=== PATIENT | male | born 1975 | race Caucasian/White ===

== ENCOUNTER 2019-12-14 17:04 | Inpatient (IN) | payer MEDICAID ==
[~2019-12-14] VITALS: Ht 172.7 cm; Wt 74.8 kg
--- NOTE | 2019-12-14 17:04 | NUR ---
PT BIBA ALS TO ER BED 10
[2019-12-14 17:12] VITALS: BP 185/100
--- NOTE | 2019-12-14 17:28 | NUR ---
BIB [facility] PATIENT WAS RECEIVING DIALYSIS TREATMENT TODAY FOR 2.5 HOURS OUT OF A 3.5 HOUR SESSION AND NOTIFIED THE NURSE THAT THE HEADACHE/NAUSEA/ BLURRED VISION HE HAS BEEN EXPERIENCING FOR THREE DAYS WAS GETTING WORSE. THE RN AT DIALYSIS CALLED 911. PATIENT REPORTS HE HAS HAD A SEVERE HEADACHE WITH NAUSEA/ VOMITING FOR THREE DAYS ACCOMPANIED BY 10/10 ABD PAIN. BOWEL SOUNDS NORMOACTIVE IN ALL QUADRANTS. ABD IS FLAT. GCS 15, AAOX4. PERRLA, 3MM. ABLE TO FOLLOW COMMANDS. DENIES CHEST PAIN/SOB. ROM IN TACT IN UPPER/LOWER BILAT EXTREMITIES. PMH: RENAL FAILURE, DM NKA
[2019-12-14] MEDS ORDERED: HYDROmorphone PFS 2 MG/ML SYR IVP ONE ×2 (17:30→19:10)
[2019-12-14 17:54] LABS: BASOPHILS % (AUTO) 0.8 % (0.0-2.0); EOSINOPHILS # (AUTO) 0.1 K/uL (0-0.4); EOSINOPHILS % (AUTO) 0.8 % (0.0-4.0); HEMATOCRIT 32.1 % (36-52); HEMOGLOBIN 10.2 g/dL (12.0-18.0); LYMPHOCYTES # (AUTO) 1.2 K/uL (2.0-11.5); LYMPHOCYTES % (AUTO) 19.2 % (20.5-51.1); MEAN CORPUSCULAR HEMOGLOBIN 27 pg (27-31); MEAN CORPUSCULAR HGB CONC 32 g/dL (33-37); MEAN CORPUSCULAR VOLUME 84.5 fL (80-94); MONOCYTES # (AUTO) 0.5 K/uL (0.8-1.0); NEUTROPHILS # (AUTO) 4.4 K/uL (1.8-7.7); NEUTROPHILS % (AUTO) 71.2 % (42.2-75.2); PLATELET COUNT (AUTO) 273 K/uL (140-450); RED CELL DISTRIBUTION WIDTH 18.5 % (11.6-13.7); WHITE BLOOD COUNT (AUTO) 6.2 K/uL (4.8-10.8)
--- NOTE | 2019-12-14 18:00 | NUR ---
FLU SWAB TAKEN AT BEDSIDE
[2019-12-14] MEDS ORDERED: ONDANSETRON 4 MG/2 ML VIAL IVP ONE (18:25)
[2019-12-14 18:32] LABS: ANION GAP 15.7 (8-16); CARBON DIOXIDE 31.4 mmol/L (21-32); POTASSIUM 4.1 mmol/L (3.5-5.1)
[2019-12-14 18:37] LABS: CREATININE 5.8 mg/dL (0.7-1.3)
[2019-12-14 18:39] LABS: ALBUMIN 3.3 g/dL (3.4-5.0); TOTAL BILIRUBIN 0.8 mg/dL (0.0-1.0)
--- NOTE | 2019-12-14 19:18 | NUR ---
SBAR REPORT GIVEN TO AJ CHA
[2019-12-14] MEDS ORDERED: ASPIRIN 325 MG TAB PO ONE (19:35)
[2019-12-14] MEDS ORDERED: ONDANSETRON 4 MG/2 ML VIAL IM/IVP PRN (20:25)
[2019-12-14] MEDS ORDERED: ACETAMINOPHEN 325 MG TAB PO PRN (20:25)
[2019-12-14] MEDS ORDERED: DEXTROSE 50% 50 ML SYR IVP PRN (20:50)
[2019-12-14] MEDS ORDERED: NITROGLYCERIN 0.4 MG TAB SL PRN (20:50)
[2019-12-14] MEDS ORDERED: FURO-570 PO (21:00)
[2019-12-14] MEDS ORDERED: LABE100T9 PO (21:00)
[2019-12-14] MEDS ORDERED: VITA1TAB44 PO (21:00)
[2019-12-14] MEDS ORDERED: NIFE60TE5 PO (21:00)
[2019-12-14] MEDS ORDERED: PHO667 PO (21:00)
[2019-12-14] MEDS ORDERED: HYDR-733 PO (21:00)
[2019-12-14] MEDS ORDERED: hydrALAZINE 20 MG/ML VIAL IVP SCH (21:00)
[2019-12-14] MEDS ORDERED: ATOR40TA PO (21:00)
[2019-12-14] MEDS ORDERED: BER PO (21:00)
[2019-12-14] MEDS: BLOOD GLUCOSE MONITORING 1 DEV DEV FS SCH (21:00)
[2019-12-14] MEDS ORDERED: CARV6.25 PO (21:00)
[2019-12-14 21:01] LABS: PROTHROMBIN TIME 11.2 secs (10.8-13.4)
--- NOTE | 2019-12-14 21:17 | NUR ---
RECEIVED PATIENT FROM ER NURSE VIA [facility]. TELE PATIENT. PATIENT IS A/O X4, ABLE TO MAKE NEEDS KNOWN. PATIENT IS BLIND OU, AMBULATORY WITH CANE/ASSIST. RESPIRATIONS EVEN. ON O2 2L NC. SKIN WARM, DRY. HD NOTED TO LEFT UPPER ARM, THRILL/BRUIT NOTED. IV SITE TO RIGHT AC 20 G PATENT, INTACT. NO C/O PAIN. NO S/SX ACUTE DISTRESS AT THIS TIME. MRSA SCREEN COMPLETED. SAFETY PRECAUTIONS IN PLACE. PATIENT ORIENTED TO ROOM, CALL LIGHT, BATHROOM AND VISITING HOURS. CALL LIGHT WITHIN REACH. WILL CONTINUE TO MONITOR.
--- NOTE | 2019-12-14 21:17 | NUR ---
Patient will be admitted to care of DR. BOWSER Admited to TELE. Will go to room 104 A. Belongings list completed. Report to STARLA LEON .
[2019-12-14 21:22] LABS: LACTATE DEHYDROGENASE 172 U/L (85-227); MAGNESIUM 2.3 mg/dL (1.8-2.4); PHOSPHORUS 3.5 mg/dL (2.5-4.9)
[2019-12-14 21:32] LABS: LIPASE 165 U/L (73-393)
[2019-12-14] MEDS: NACL 0.9% 1,000 ML IV SCH (21:55)
[2019-12-14 22:21] LABS: IRON, SERUM 28 ug/dl (50-175); TOTAL IRON BINDING CAPACITY 186 ug/dl (250-450)
--- NOTE | 2019-12-14 22:34 | NUR ---
BLOOD PRESSURE 178/92, HR 80. PATIENT STATED HE ONLY HAS A MILD HEADACHE BUT THAT HE IS OK. WILL CONTINUE TO MONITOR.
[2019-12-14] MEDS: ATORVASTATIN 20 MG TAB PO SCH (23:04)
[2019-12-14] MEDS: VIT-B COMP/VIT-C/FOLIC ACID 1 TAB PO SCH (23:04)
[2019-12-14] MEDS: FUROSEMIDE 40 MG TAB PO SCH (23:05)
[2019-12-14] MEDS: CARVEDILOL 6.25 MG TAB PO SCH (23:05)
--- NOTE | 2019-12-14 23:41 | NUR ---
BLOOD PRESSURE 184/96 HR 79. MEDICATED WITH APRESOLINE PRN. WILL CONTINUE TO MONITOR. Addendum: 12/14/19 at 2343 by Anastasia Carr RN DOCUMENTATION TIME FOR 2133.
--- NOTE | 2019-12-14 23:44 | NUR ---
BLOOD PRESSURE TRENDING DOWN AND CURRENTLY AT 160/80, HR 74. PATIENT IS ASLEEP. NO C/O PAIN. CALL LIGHT WITHIN REACH. WILL CONTINUE TO MONITOR.
[2019-12-15] VITALS: BP 150/78
[2019-12-15] MEDS: HYDROcodone/APAP 5/325 MG 1 TAB TAB PO PRN (00:15)
--- NOTE | 2019-12-15 00:15 | NUR ---
PATIENT C/O ACHING HIP PAIN 05/04. MEDICATED ORDERED. WILL CONTINUE TO MONITOR.
--- NOTE | 2019-12-15 01:15 | NUR ---
PATIENT VERBALIZED RELIEF FROM HIP PAIN AT A TOLERABLE LEVEL. CALL LIGHT WITHIN REACH. WILL CONTINUE TO MONITOR.
[2019-12-15] MEDS: MORPHINE SULFATE 2 MG/ML SYR IVP PRN ×2 (01:49→06:05)
--- NOTE | 2019-12-15 01:49 | NUR ---
PATIENT C/O ACHING HIP PAIN 08/04. MEDICATED ORDERED. CALL LIGHT WITHIN REACH. WILL CONTINUE TO MONITOR.
[2019-12-15 02:27] LABS: BASOPHILS % (AUTO) 0.9 % (0.0-2.0); EOSINOPHILS # (AUTO) 0.1 K/uL (0-0.4); EOSINOPHILS % (AUTO) 0.9 % (0.0-4.0); HEMATOCRIT 30.3 % (36-52); HEMOGLOBIN 9.6 g/dL (12.0-18.0); LYMPHOCYTES # (AUTO) 1.3 K/uL (2.0-11.5); LYMPHOCYTES % (AUTO) 23.2 % (20.5-51.1); MEAN CORPUSCULAR HEMOGLOBIN 27 pg (27-31); MEAN CORPUSCULAR HGB CONC 32 g/dL (33-37); MEAN CORPUSCULAR VOLUME 85.3 fL (80-94); MONOCYTES # (AUTO) 0.6 K/uL (0.8-1.0); MONOCYTES % (AUTO) 10.5 % (1.7-9.3); NEUTROPHILS # (AUTO) 3.5 K/uL (1.8-7.7); NEUTROPHILS % (AUTO) 64.5 % (42.2-75.2); PLATELET COUNT (AUTO) 230 K/uL (140-450); RED BLOOD CELL COUNT(AUTO) 3.55 MIL/uL (4.20-6.10); RED CELL DISTRIBUTION WIDTH 18.3 % (11.6-13.7); WHITE BLOOD COUNT (AUTO) 5.5 K/uL (4.8-10.8)
--- NOTE | 2019-12-15 02:49 | NUR ---
PATIENT ASLEEP IN BED. CALL LIGHT WITHIN REACH. WILL CONTINUE TO MONITOR.
[2019-12-15 03:16] LABS: CARBON DIOXIDE 30.8 mmol/L (21-32); MAGNESIUM 2.3 mg/dL (1.8-2.4); PHOSPHORUS 5.1 mg/dL (2.5-4.9); POTASSIUM 4.8 mmol/L (3.5-5.1)
[2019-12-15 03:28] LABS: CHOL/HDL RATIO 2.1 (1-4.5)
[2019-12-15] MEDS ORDERED: APAP/BUTAL/CAFF 325/50/40 MG 1 TAB PO PRN (03:40)
[2019-12-15 04:00] VITALS: BP 123/71
[2019-12-15] MEDS ORDERED: HYDROmorphone 1 MG/ML AMP IVP SCH (04:00)
--- NOTE | 2019-12-15 04:06 | NUR ---
PATIENT C/O UNCONTROLLABLE HEADACHE. MD WITH NEW ORDER FOR DILAUDID. MEDICATED ORDERED. WILL CONTINUE TO MONITOR.
[2019-12-15 05:03] LABS: CREATININE 6.8 mg/dL (0.7-1.3)
--- NOTE | 2019-12-15 05:06 | NUR ---
PATIENT ASLEEP. NO C/O PAIN. CALL LIGHT WITHIN REACH. WILL CONTINUE TO MONITOR.
--- NOTE | 2019-12-15 05:06 | NUR ---
CRITICAL LAB CREATININE 6.8, MADE AWARE. PATIENT IS ASLEEP IN BED. NO S/SX ACUTE DISTRESS NOTED. CALL LIGHT WITHIN REACH. WILL CONTINUE TO MONITOR. Addendum: 12/15/19 at 0648 by Anastasia Carr RN REPORTED TO DR PANDYA.
--- NOTE | 2019-12-15 06:05 | NUR ---
PATIENT CONTINUES TO C/O OF HEADACHE 08/04. MEDICATED ORDERED. WILL CONTINUE TO MONITOR.
[2019-12-15] MEDS: BLOOD GLUCOSE MONITORING 1 DEV DEV FS SCH ×4 (06:19→21:00)
--- NOTE | 2019-12-15 07:08 | NUR ---
ENDORSED PATIENT TO AM SHIFT IN STABLE CONDITION FOR CONTINUITY OF CARE.
[2019-12-15] MEDS ORDERED: CYCLOBENZAPRINE 10 MG TAB PO PRN (07:15)
--- NOTE | 2019-12-15 07:27 | NUR ---
RECEIVED REPORT FROM NIGHT NURSE. PT IN STABLE CONDITION, AAOX4, DENIES PAIN, NO DISTRESS NOTED. PT LEGALLY BLIND. RESPIRATIONS EVEN AND UNLABORED ON O2 NC 2L. IV IN PLACE IN R AC 22G PATENT AND ASYMPTOMATIC INFUSING PER ORDER. UPPER LEFT ARM SHUNT IN PLACE FOR HD. SKIN INTACT. SAFETY MEASURES IN PLACE. CALL LIGHT WITHIN REACH. BED IN LOW POSITION. WILL CONTINUE TO MONITOR.
[2019-12-15 08:00] VITALS: BP 131/71
[2019-12-15] MEDS: FLUTICASONE NASAL 50 MCG/ACTUATION 16 GM BTL NS SCH (08:30)
[2019-12-15] MEDS: VITAMIN B COMPLEX W/C 1 TAB PO SCH (08:31)
[2019-12-15] MEDS: hydrALAZINE 25 MG TAB PO SCH ×3 (08:31→17:00)
[2019-12-15] MEDS: NIFEdipine 60 MG TABER PO SCH (08:32)
[2019-12-15] MEDS: LORATADINE 10 MG TAB PO SCH (08:32)
[2019-12-15] MEDS: FUROSEMIDE 40 MG TAB PO SCH ×2 (08:38→21:27)
[2019-12-15] MEDS: ASPIRIN 81 MG TAB.CHEW PO SCH (08:38)
[2019-12-15] MEDS: CARVEDILOL 6.25 MG TAB PO SCH ×2 (08:38→21:27)
--- NOTE | 2019-12-15 08:38 | NUR ---
PATIENT HAS BEEN SCREENED AND CATEGORIZED MODERATE NUTRITION RISK. PATIENT WILL BE SEEN WITHIN 3-5 DAYS OF ADMISSION. 12/17/19 12/19/[address]
[2019-12-15] MEDS: CALCIUM ACETATE 667 MG TAB PO SCH ×3 (08:39→17:00)
--- NOTE | 2019-12-15 09:24 | NUR ---
MEDICATIONS ADMINISTERED PER ORDER. PT TOLERATED WELL, NO DISTRESS NOTED. WILL CONTINUE TO MONITOR.
--- NOTE | 2019-12-15 11:12 | NUR ---
BLOOD SUGAR CHECKED AT THIS TIME. NO COVERAGE NEEDED. SAFETY MEASURES IN PLACE. WILL CONTINUE TO MONITOR.
[2019-12-15 12:00] VITALS: BP 161/85
[2019-12-15] MEDS: SUMAtriptan 25 MG TAB PO PRN ×2 (12:00→18:40)
--- NOTE | 2019-12-15 12:04 | NUR ---
MEDICATIONS ADMINISTERED PER ORDER. PT TOLERATED WELL, NO DISTRESS NOTED. WILL CONTINUE TO MONITOR.
--- NOTE | 2019-12-15 15:02 | NUR ---
PT REQUESTS TO BE CHANGED TO ANOTHER ROOM DUE TO FAMILY MEMBERS PRESENT WITH ROOMMATE. TRANSFERED TO ROOM 111B. PT HAPPY WITH CHANGE
--- NOTE | 2019-12-15 15:16 | NUR ---
PT STARTS HEMODIALYSIS. WILL CONTINUE TO MONITOR.
[2019-12-15 16:00] VITALS: BP 178/92
--- NOTE | 2019-12-15 17:05 | NUR ---
BEHZAD assessment/discharge plan High Risk DC Screen Yes Name: Huey Mcclendon Home Relationship: Pre-Admission Living Arrangements: Lives with Other Other: Huey Mcclendon Prior ADL Independent Current Home Health Name/Tel: N/A Current DME/02 Name/Tel: [facility] Current Hospice Name/Tel: N/A Current Dialysis Name/Tel: [facility] MWF 2pm, medical van Healthcare Decision Maker: Patient Advance Directive No Information Taught: Advance Directive Community Resources Person Taught: Patient Teaching Tools: Community Resources Computer Generated Print Verbal Factors Affecting Learning: None Participation Level: Active Evaluation: Gestures Understanding Verbalizes Understanding Educator: BEHZAD Pelletier Tentative Discharge Plan Summary: Patient is a 44 year old male admitted for chest pain. I met with patient at bedside. Patient alert and oriented x4. Patient speaks Polish. Patient lives at home with his Huey Mcclendon at home and plans to return home upon discharge. Patient's new pcp is Anna Smalls and he does not have any difficulty filling his prescriptions at pharmacy. Patient denied alcohol/substance abuse. He reported he has been experiencing depression. He denied SI and HI. He is not receiving counseling/mental health services. He is planning to request his pcp for a therapist referral (same clinic where he sees pcp, [facility] [phone]). I provided him with education on [facility] www.[employer].org for community resources. War[employer] Clamper and/or [employer] will follow up as needed. Signature: BEHZAD Pelletier Date: Dec 15, 2019
--- NOTE | 2019-12-15 17:49 | NUR ---
PT CONTINUING TO RECEIVE HEMODIALYSIS IN STABLE CONDITION. NO DISTRESS NOTED. WILL CONTINUE TO MONITOR.
--- NOTE | 2019-12-15 19:10 | NUR ---
REPORT GIVEN TO NIGHT NURSE FOR CONTINUITY OF CARE.
--- NOTE | 2019-12-15 19:11 | NUR ---
RECEIVED BEDSIDE REPORT FROM AM SHIFT NURSE. PATIENT IS SITTING ON BED, AWAKE AND ALERT. PATIENT IS LEGALLY BLIND, WITH WALKING STICK AT BEDSIDE. NO SOB OR DISTRESS NOTED. ON ROOM AIR. IV ACCESS ON RIGHT AC 22 GAUGE, PATENT, INTACT AND INFUSING WELL. INITIAL ASSESSMENT DONE. BED IN LOW, SAFETY MEASURES IN PLACE. CALL LIGHT PLACED WITHIN PATIENT REACH. WILL CONTINUE TO MONITOR PATIENT. Addendum: 12/16/19 at 0126 by Brina Pearce RN DIALYSIS ACCESS NOTED ON LEFT UPPER ARM.
[2019-12-15 20:00] VITALS: BP 188/97
--- NOTE | 2019-12-15 20:00 | NUR ---
PATIENT WAS FRUSTRATED AND CONFUSED AND WANTED TO BE MOVED BACK TO PREVIOUS ROOM OR HE WAS GOING TO LEAVE. REASSURED AND CALMED PATIENT DOWN. MD SPOKE WITH PATIENT AND PATIENT WILL BE MOVED BACK TO ROOM 104A.
[2019-12-15] MEDS: NACL 0.9% 1,000 ML IV SCH (21:00)
--- NOTE | 2019-12-15 21:05 | NUR ---
BLOOD GLUCOSE CHECK WITH RESULT OF 147. NO INSULIN COVERAGE NEEDED. WILL CONTINUE TO MONITOR PATIENT.
[2019-12-15] MEDS: ATORVASTATIN 20 MG TAB PO SCH (21:27)
[2019-12-15] MEDS: VIT-B COMP/VIT-C/FOLIC ACID 1 TAB PO SCH (21:27)
[2019-12-16 00:05] VITALS: BP 158/84
--- NOTE | 2019-12-16 00:15 | NUR ---
VITALS DONE AT THIS TIME. VISIBLE CHEST RISE AND FALL NOTED. WILL CONTINUE TO MONITOR PATIENT.
[2019-12-16 04:05] VITALS: BP 152/82
--- NOTE | 2019-12-16 04:30 | NUR ---
PATIENT HAS A TEMP OF 99.3. COOLING MEASURES RENDERED AT THIS TIME. WILL CONTINUE TO MONITOR PATIENT.
--- NOTE | 2019-12-16 07:05 | NUR ---
PATIENT IN STABLE CONDITION. CALL LIGHT PLACED WITHIN PATIENT REACH. ENDORSED TO AM SHIFT NURSE FOR CONTINUITY OF CARE.
--- NOTE | 2019-12-16 07:06 | NUR ---
RECEIVED PATIENT FROM EMERGENCY MEDICAL TECH NURSE, JAMISON. PATIENT IS AAOX4. PATIENT IS LEGALLY BLIND. RESPIRATIONS EVEN AND UNLABORED, ROOM AIR. VISIBLE CHEST RISE NOTED. ON TELE MONITORING. ABDOMEN FLAT, AND NONTENDER. SKIN WARM AND DRY. SKIN INTACT. IV IN THE RIGHT AC G22 NS AT 10 ML/HR. IV PATENT AND INTACT. LEFT UPPER ARM FISTULA NOTED. PATIENT IS AMBULATORY WITH ASSIST. BED IN LOW POSITION. CALL LIGHT IS WITHIN REACH. WILL CONTINUE TO MONITOR
[2019-12-16 07:13] LABS: BASOPHILS % (AUTO) 0.7 % (0.0-2.0); EOSINOPHILS % (AUTO) 0.5 % (0.0-4.0); HEMATOCRIT 30.4 % (36-52); HEMOGLOBIN 9.5 g/dL (12.0-18.0); LYMPHOCYTES # (AUTO) 0.8 K/uL (2.0-11.5); LYMPHOCYTES % (AUTO) 13.7 % (20.5-51.1); MEAN CORPUSCULAR HEMOGLOBIN 27 pg (27-31); MEAN CORPUSCULAR HGB CONC 31 g/dL (33-37); MEAN CORPUSCULAR VOLUME 84.8 fL (80-94); MONOCYTES # (AUTO) 0.5 K/uL (0.8-1.0); NEUTROPHILS # (AUTO) 4.2 K/uL (1.8-7.7); NEUTROPHILS % (AUTO) 76.1 % (42.2-75.2); PLATELET COUNT (AUTO) 230 K/uL (140-450); RED BLOOD CELL COUNT(AUTO) 3.58 MIL/uL (4.20-6.10); RED CELL DISTRIBUTION WIDTH 18.2 % (11.6-13.7); WHITE BLOOD COUNT (AUTO) 5.5 K/uL (4.8-10.8)
[2019-12-16 07:38] LABS: PHOSPHORUS 4.7 mg/dL (2.5-4.9)
[2019-12-16 07:44] LABS: CARBON DIOXIDE 27.7 mmol/L (21-32); POTASSIUM 4.7 mmol/L (3.5-5.1)
[2019-12-16 07:46] LABS: CREATININE 5.6 mg/dL (0.7-1.3)
[2019-12-16] MEDS: BLOOD GLUCOSE MONITORING 1 DEV DEV FS SCH ×4 (07:56→21:23)
--- NOTE | 2019-12-16 07:56 | NUR ---
CHECKED BLOOD SUGAR: 81. GIVEN ORANGE JUICE.
[2019-12-16 08:00] VITALS: BP 160/83
[2019-12-16 08:10] LABS: FOLIC ACID 12.6 ng/mL (>3.0); T4 (THYROXINE) 7.1 ug/dL (4.5-12.0)
[2019-12-16] MEDS: ASPIRIN 81 MG TAB.CHEW PO SCH (08:55)
[2019-12-16] MEDS: VITAMIN B COMPLEX W/C 1 TAB PO SCH (08:55)
[2019-12-16] MEDS: LORATADINE 10 MG TAB PO SCH (08:55)
[2019-12-16] MEDS: CALCIUM ACETATE 667 MG TAB PO SCH ×3 (08:55→17:04)
[2019-12-16] MEDS: FLUTICASONE NASAL 50 MCG/ACTUATION 16 GM BTL NS SCH (08:56)
[2019-12-16] MEDS: NIFEdipine 60 MG TABER PO SCH (09:04)
[2019-12-16] MEDS: FUROSEMIDE 40 MG TAB PO SCH ×2 (09:04→21:00)
[2019-12-16] MEDS: hydrALAZINE 25 MG TAB PO SCH ×3 (09:05→17:04)
[2019-12-16] MEDS: CARVEDILOL 6.25 MG TAB PO SCH ×2 (09:05→17:06)
--- NOTE | 2019-12-16 09:05 | NUR ---
GIVEN MORNING MEDICATIONS PO. EXPLAINED TO PATIENT MEDS. PATIENT VERBALIZED UNDERSTANDING. BED IN LOW POSITION. CALL LIGHT IS WITHIN REACH. WILL CONTINUE TO MONITOR
--- NOTE | 2019-12-16 10:16 | NUR ---
PATIENT IS WITH PHYSICAL THERAPY AT THIS TIME. AMBULATING AROUND THE UNIT WITH PT.
[2019-12-16] MEDS ORDERED: CARVEDILOL 6.25 MG TAB PO SCH (11:00)
--- NOTE | 2019-12-16 11:30 | NUR ---
GIVEN COREG FOR HTN. EXPLAINED TO PATIENT MED. PATIENT VERBALIZED UNDERSTANDING. WILL CONTINUE TO MONITOR
--- NOTE | 2019-12-16 11:40 | NUR ---
VITAL SIGNS TAKEN. BLOOD SUGAR: 100. WILL CONTINUE TO MONITOR
[2019-12-16 12:00] VITALS: BP 153/90
--- NOTE | 2019-12-16 13:16 | NUR ---
GIVEN HYDRALAZINE AND PHOSLO PO. BP 139/80, HR 74. EXPLAINED TO PATIENT MEDICATIONS. PATIENT VERBALIZED UNDERSTANDING. WILL CONTINUE TO MONITOR
[2019-12-16] MEDS: HYDROcodone/APAP 5/325 MG 1 TAB TAB PO PRN ×2 (13:24→22:43)
--- NOTE | 2019-12-16 13:25 | NUR ---
GIVEN NORCO FOR PAIN 6/10 HEADACHE. EXPLAINED TO PATIENT MEDICATION. PATIENT VERBALIZED UNDERSTANDING. WILL CONTINUE TO MONITOR
[2019-12-16] MEDS: DOCUSATE SODIUM 100 MG GELCAP PO PRN (13:29)
--- NOTE | 2019-12-16 13:29 | NUR ---
GIVEN COLACE. PATIENT C/O CONSTIPATION. EXPLAINED TO PATIENT MED. PATIENT VERBALIZED UNDERSTANDING. BED IN LOW POSITION. CALL LIGHT IS WITHIN REACH
--- NOTE | 2019-12-16 14:42 | NUR ---
PATIENT IS SLEEPING AT THIS TIME. NO SIGNS OF DISTRESS NOTED. WILL CONTINUE TO MONITOR
[2019-12-16] MEDS: MORPHINE SULFATE 2 MG/ML SYR IVP PRN ×2 (15:55→23:21)
--- NOTE | 2019-12-16 15:56 | NUR ---
GIVEN MORPHINE FOR HEADACHE 07/04. EXPLAINED TO PATIENT MEDICATION. PATIENT VERBALIZED UNDERSTANDING. BED IN LOW POSITION. CALL LIGHT IS WITHIN REACH. WILL REASSESS
[2019-12-16 16:00] VITALS: BP 154/84
--- NOTE | 2019-12-16 16:09 | NUR ---
NO SIGNS OF DISTRESS NOTED. WILL CONTINUE TO MONITOR. FAMILY AT BEDSIDE
--- NOTE | 2019-12-16 17:08 | NUR ---
GIVEN MEDICATIONS PO. EXPLAINED TO PATIENT INDICATIONS. PATIENT VERBALIZED UNDERSTANDING. PATIENT BP 157/63, HR 76. BED IN LOW POSITION. CALL LIGHT IS WITHIN REACH. WILL CONTINUE TO MONITOR
--- NOTE | 2019-12-16 19:02 | NUR ---
ENDORSED PATIENT TO PUBLIC HEALTH NURSE NURSE FOR CONTINUITY OF CARE. PATIENT IS IN STABLE CONDITION
--- NOTE | 2019-12-16 19:03 | NUR ---
RECEIVED BEDSIDE REPORT FROM AM SHIFT NURSE. PATIENT IS SITTING AT BEDSIDE. NO SOB OR DISTRESS NOTED. IV ACCESS RIGHT AC 22 GAUGE, PATENT, INTACT AND INFUSING WELL. LEFT UPPER ARM FISTULA NOTED FOR DIALYSIS ACCESS. INITIAL ASSESSMENT DONE. BED IN LOW, SAFETY PRECAUTIONS IN PLACE. BOARD UPDATED. CALL LIGHT PLACED WITHIN PATIENT REACH. WILL CONTINUE TO MONITOR PATIENT.
[2019-12-16 20:15] VITALS: BP 154/80
[2019-12-16] MEDS: NACL 0.9% 1,000 ML IV SCH (21:00)
[2019-12-16] MEDS: VIT-B COMP/VIT-C/FOLIC ACID 1 TAB PO SCH (21:01)
[2019-12-16] MEDS: ATORVASTATIN 20 MG TAB PO SCH (21:02)
[2019-12-16] MEDS: SUMAtriptan 25 MG TAB PO PRN (21:02)
--- NOTE | 2019-12-16 21:02 | NUR ---
PRN IMITREX GIVEN FOR SEVERE MIGRAINE. PATIENT IS MOANING AND SQUEEZING HEAD IN PAIN. WILL CONTINUE TO MONITOR PATIENT.
[2019-12-16] MEDS: INSULIN LISPRO SLIDING SCALE 100 UNITS/ML VIAL SUBQ PRN (21:20)
--- NOTE | 2019-12-16 22:43 | NUR ---
PRN NORCO GIVEN FOR HEADACHE. CALL LIGHT WITHIN PATIENT REACH. WILL CONTINUE TO MONITOR PATIENT.
--- NOTE | 2019-12-16 23:21 | NUR ---
PATIENT STATES THAT SEVERE HEADACHE IS NOT GOING AWAY. SAID ITS OKAY TO GIVE MORPHINE AT THIS TIME FOR HEADACHE. PRN MORPHINE GIVEN. WILL CONTINUE TO MONITOR PATIENT.
[2019-12-17 00:05] VITALS: BP 136/73
--- NOTE | 2019-12-17 00:05 | NUR ---
VITALS DONE AT THIS TIME. NO DISTRESS NOTED. WILL CONTINUE TO MONITOR PATIENT.
[2019-12-17] MEDS: MORPHINE SULFATE 2 MG/ML SYR IVP PRN ×3 (02:54→17:15)
--- NOTE | 2019-12-17 02:58 | NUR ---
PATIENT GIVEN PRN MORPHINE FOR SEVERE HEADACHE AT THIS TIME. WILL CONTINUE TO MONITOR PATIENT.
[2019-12-17 03:52] VITALS: BP 142/82
--- NOTE | 2019-12-17 03:59 | NUR ---
VITALS TAKEN AT THIS TIME. NO DISTRESS NOTED. WILL CONTINUE TO MONITOR PATIENT.
[2019-12-17] MEDS: BLOOD GLUCOSE MONITORING 1 DEV DEV FS SCH ×4 (06:49→21:23)
--- NOTE | 2019-12-17 06:50 | NUR ---
PATIENT HAD A BLOOD GLUCOSE RESULT OF 101 WITH NO UNITS OF INSULIN COVERAGE GIVEN. WILL CONTINUE TO MONITOR PATIENT.
--- NOTE | 2019-12-17 06:58 | NUR ---
PATIENT IN STABLE CONDITION. CALL LIGHT WITHIN PATIENT REACH. WILL ENDORSE TO AM SHIFT NURSE FOR CONTINUITY OF CARE.
--- NOTE | 2019-12-17 07:05 | NUR ---
RECEIVED REPORT FROM NIGHT NURSE. PATIENT IS AAOX4, DENIES PAIN, NO DISTRESS NOTED. PT LEGALLY BLIND. RESPIRATIONS EVEN AND UNLABORED, ROOM AIR. VISIBLE CHEST RISE NOTED. ON TELE MONITORING. IV IN PLACE IN RIGHT AC 22G PATENT AND ASYMPTOMATIC INFUSING PER ORDER. UPPER LEFT ARM SHUNT IN PLACE FOR HD. SKIN INTACT, WARM AND DRY. SAFETY MEASURES IN PLACE. CALL LIGHT WITHIN REACH. BED IN LOW POSITION. WILL CONTINUE TO MONITOR.
[2019-12-17 07:10] LABS: BASOPHILS % (AUTO) 0.8 % (0.0-2.0); EOSINOPHILS % (AUTO) 0.7 % (0.0-4.0); HEMATOCRIT 30.9 % (36-52); HEMOGLOBIN 9.8 g/dL (12.0-18.0); LYMPHOCYTES # (AUTO) 0.9 K/uL (2.0-11.5); LYMPHOCYTES % (AUTO) 18.6 % (20.5-51.1); MEAN CORPUSCULAR HEMOGLOBIN 27 pg (27-31); MEAN CORPUSCULAR HGB CONC 32 g/dL (33-37); MEAN CORPUSCULAR VOLUME 85.2 fL (80-94); MONOCYTES # (AUTO) 0.6 K/uL (0.8-1.0); MONOCYTES % (AUTO) 11.3 % (1.7-9.3); NEUTROPHILS # (AUTO) 3.5 K/uL (1.8-7.7); NEUTROPHILS % (AUTO) 68.6 % (42.2-75.2); PLATELET COUNT (AUTO) 205 K/uL (140-450); RED BLOOD CELL COUNT(AUTO) 3.63 MIL/uL (4.20-6.10); RED CELL DISTRIBUTION WIDTH 18.3 % (11.6-13.7); WHITE BLOOD COUNT (AUTO) 5.1 K/uL (4.8-10.8)
[2019-12-17 07:23] LABS: ANION GAP 15.4 (8-16); CARBON DIOXIDE 28.1 mmol/L (21-32); POTASSIUM 5.5 mmol/L (3.5-5.1)
[2019-12-17 07:29] LABS: MAGNESIUM 2.1 mg/dL (1.8-2.4); PHOSPHORUS 5.8 mg/dL (2.5-4.9)
[2019-12-17 08:00] VITALS: BP 137/80
--- NOTE | 2019-12-17 08:06 | NUR ---
DR. BOWSER AND THE RESIDENT DOCTORS MADE ROUNDS
[2019-12-17 08:43] LABS: CREATININE 7.5 mg/dL (0.7-1.3)
[2019-12-17] MEDS: CALCIUM ACETATE 667 MG TAB PO SCH ×3 (09:00→17:13)
[2019-12-17] MEDS: FUROSEMIDE 40 MG TAB PO SCH ×2 (09:00→21:25)
[2019-12-17] MEDS: VITAMIN B COMPLEX W/C 1 TAB PO SCH (09:00)
[2019-12-17] MEDS: CARVEDILOL 6.25 MG TAB PO SCH ×2 (09:00→17:14)
[2019-12-17] MEDS: ASPIRIN 81 MG TAB.CHEW PO SCH (09:00)
[2019-12-17] MEDS: LORATADINE 10 MG TAB PO SCH (09:00)
[2019-12-17] MEDS: hydrALAZINE 25 MG TAB PO SCH ×3 (09:00→17:14)
[2019-12-17] MEDS: NIFEdipine 60 MG TABER PO SCH (09:00)
--- NOTE | 2019-12-17 09:00 | NUR ---
HELD ALL BP MEDICATIONS BECAUSE PT. HAS SCHEDULED DIALYSIS
[2019-12-17] MEDS: FLUTICASONE NASAL 50 MCG/ACTUATION 16 GM BTL NS SCH (09:01)
--- NOTE | 2019-12-17 09:01 | NUR ---
GIVEN MORNING MEDICATIONS PO. HELD BP MEDICATIONS BECAUSE PT. HAS SCHEDULED DIALYSIS. GIVEN MORPHINE FOR 08/04 HEADACHE. EXPLAINED TO PATIENT MEDICATIONS. PATIENT VERBALIZED UNDERSTANDING. WILL CONTINUE TO MONITOR
--- NOTE | 2019-12-17 09:15 | NUR ---
DIALYSIS HAS STARTED.
--- NOTE | 2019-12-17 11:40 | NUR ---
VITAL SIGNS TAKEN. BLOOD GLUCOSE CHECK: 151. WILL GIVE INSULIN
[2019-12-17 12:00] VITALS: BP 167/54
--- NOTE | 2019-12-17 12:30 | NUR ---
DIALYSIS DONE. OUTPUT OF 3 LITERS.
[2019-12-17] MEDS: INSULIN LISPRO SLIDING SCALE 100 UNITS/ML VIAL SUBQ PRN ×2 (12:45→17:20)
--- NOTE | 2019-12-17 12:45 | NUR ---
GIVEN 2 UNITS OF INSULIN FOR BLOOD GLUCOSE 151
[2019-12-17] MEDS: SUMAtriptan 25 MG TAB PO PRN ×2 (13:20→22:06)
--- NOTE | 2019-12-17 13:22 | NUR ---
GIVEN HYDRALAZINE, SUMATRIPTAN, AND PHOSLO PO. EXPLAINED TO PATIENT MEDS. PATIENT VERBALIZED UNDERSTANDING. BED IN LOW POSITION. CALL LIGHT IS WITHIN REACH. WILL CONTINUE TO MONITOR
--- NOTE | 2019-12-17 14:52 | NUR ---
PATIENT IS SLEEPING BUT OPEN EYES WHEN NAME IS CALLED. PATIENT C/O OF HEADACHE 03/04. PATIENT STATED IT IS TOLERABLE
[2019-12-17 16:00] VITALS: BP 172/87
[2019-12-17] MEDS: DOCUSATE SODIUM 100 MG GELCAP PO PRN (17:13)
--- NOTE | 2019-12-17 17:15 | NUR ---
GIVEN MEDICATIONS PO. INSULIN 2 UNITS FOR BLOOD SUGAR 157 IN THE LEFT LOWER ABDOMEN. EXPLAINED TO PATIENT MEDS. PATIENT VERBALIZED UNDERSTANDING. BED IN LOW POSITION. CALL LIGHT IS WITHIN REACH. WILL CONTINUE TO MONITOR
--- NOTE | 2019-12-17 19:15 | NUR ---
ENDORSED PATIENT TO BONDING AND COMPOSITE FABRICATOR NURSE FOR CONTINUITY OF CARE. PATIENT IS IN STABLE CONDITION
--- NOTE | 2019-12-17 19:16 | NUR ---
RECEIVED REPORT DAY RN. PATIENT IS AAOX4, DENIES PAIN, NO DISTRESS NOTED. PT LEGALLY BLIND. RESPIRATIONS EVEN AND UNLABORED, ROOM AIR. VISIBLE CHEST RISE NOTED. ON TELE MONITORING. IV IN PLACE IN RIGHT AC 22G PATENT AND ASYMPTOMATIC INFUSING PER ORDER. UPPER LEFT ARM SHUNT IN PLACE FOR HD. SIGN IN WALL. SKIN INTACT, WARM AND DRY. SAFETY MEASURES IN PLACE. HD TODAY 12/17 WITH 3L OUTPUT. CALL LIGHT WITHIN REACH. BED IN LOW POSITION. WILL CONTINUE TO MONITOR.
[2019-12-17 20:00] VITALS: BP 162/88
[2019-12-17] MEDS: NACL 0.9% 1,000 ML IV SCH (21:23)
[2019-12-17] MEDS: ATORVASTATIN 20 MG TAB PO SCH (21:24)
[2019-12-17] MEDS: VIT-B COMP/VIT-C/FOLIC ACID 1 TAB PO SCH (21:25)
--- NOTE | 2019-12-17 21:25 | NUR ---
TRAVIS MEDICATIONS GIVEN PER ORDERS. VITAL SIGNS ARE STABLE. PT TOLERATED WELL. WILL CONTINUE TO MONITOR.
--- NOTE | 2019-12-17 22:06 | NUR ---
IMITREX GIVEN FOR HEADACHE. PT TOLERATED WELL. CALL LIGHT IS WITHIN REACH. WILL CONTINUE TO MONITOR.
[2019-12-18] VITALS: BP 160/94
--- NOTE | 2019-12-18 00:02 | NUR ---
VITAL SIGNS ARE WITHIN NORMAL LIMITS. PT LAYING COMFORTABLY IN BED. NO S/S OF DISTRESS. CALL LIGHT IS WITHIN REACH. WILL CONTINUE TO MONITOR
--- NOTE | 2019-12-18 02:20 | NUR ---
PATIENT IS SLEEPING COMFORTABLY IN BED. CHEST RISE AND FALL. CALL LIGHT IS WITHIN REACH. WILL CONTINUE TO MONITOR.
[2019-12-18] MEDS: hydrALAZINE 25 MG TAB PO SCH ×2 (03:55→09:52)
--- NOTE | 2019-12-18 03:55 | NUR ---
B/P HIGH 170/94 HR 75 AM APRESOLINE GIVEN NOW PER DR PANDYA. MORPHINE GIVEN FOR HEADACHE 07/04. CALL LIGHT WITHIN REACH.
[2019-12-18] MEDS: MORPHINE SULFATE 2 MG/ML SYR IVP PRN ×2 (03:56→09:53)
[2019-12-18 04:00] VITALS: BP 170/94
[2019-12-18] MEDS: BLOOD GLUCOSE MONITORING 1 DEV DEV FS SCH ×2 (05:23→11:30)
[2019-12-18] MEDS: NIFEdipine 60 MG TABER PO SCH ×2 (05:42→09:53)
--- NOTE | 2019-12-18 05:42 | NUR ---
B/P REMAINS ELEVATED 169/87 HR 73. PER ORDERS ADMINISTER AM ADALAT. PT TOLERATED WELL. ALL SAFETY MEASURES ARE IN PLACE. WILL CONTINUE TO MONITOR.
[2019-12-18 06:30] VITALS: BP 163/84
[2019-12-18 07:09] LABS: BASOPHILS % (AUTO) 0.8 % (0.0-2.0); EOSINOPHILS % (AUTO) 0.6 % (0.0-4.0); HEMATOCRIT 31.5 % (36-52); LYMPHOCYTES # (AUTO) 1.1 K/uL (2.0-11.5); LYMPHOCYTES % (AUTO) 18.7 % (20.5-51.1); MEAN CORPUSCULAR HEMOGLOBIN 27 pg (27-31); MEAN CORPUSCULAR HGB CONC 32 g/dL (33-37); MEAN CORPUSCULAR VOLUME 84.7 fL (80-94); MONOCYTES # (AUTO) 0.6 K/uL (0.8-1.0); MONOCYTES % (AUTO) 10.2 % (1.7-9.3); NEUTROPHILS % (AUTO) 69.7 % (42.2-75.2); PLATELET COUNT (AUTO) 224 K/uL (140-450); RED BLOOD CELL COUNT(AUTO) 3.72 MIL/uL (4.20-6.10); WHITE BLOOD COUNT (AUTO) 5.7 K/uL (4.8-10.8)
--- NOTE | 2019-12-18 07:10 | NUR ---
RECEIVED BEDSIDE REPORT FROM HORSER UP NURSE. PT IS ASLEEP. NO S/S OF DISTRESS. ON ROOM AIR, SKIN INTACT. IV SITE R AC 22 G, INFUSING NS 10 ML/HR. FALL PRECAUTIONS IN PLACE. CALL LIGHT IS WITHIN REACH. WILL CONTINUE TO MONITOR.
--- NOTE | 2019-12-18 07:25 | NUR ---
GAVE BEDSIDE REPORT TO DAY RN. PT ENDORSED IN STABLE CONDITION.
[2019-12-18 07:30] LABS: MAGNESIUM 1.9 mg/dL (1.8-2.4); PHOSPHORUS 4.7 mg/dL (2.5-4.9)
[2019-12-18 07:37] LABS: ANION GAP 16.1 (8-16); CARBON DIOXIDE 27.5 mmol/L (21-32); POTASSIUM 4.6 mmol/L (3.5-5.1)
[2019-12-18 08:00] VITALS: BP 180/89
[2019-12-18 08:23] LABS: CREATININE 6.4 mg/dL (0.7-1.3)
[2019-12-18] MEDS: FLUTICASONE NASAL 50 MCG/ACTUATION 16 GM BTL NS SCH (09:00)
[2019-12-18] MEDS ORDERED: GABAPENTIN 100 MG CAP PO SCH ×2 (09:00)
[2019-12-18] MEDS: SUMAtriptan 25 MG TAB PO PRN (09:51)
[2019-12-18] MEDS: CALCIUM ACETATE 667 MG TAB PO SCH ×2 (09:52→14:07)
[2019-12-18] MEDS: FUROSEMIDE 40 MG TAB PO SCH (09:52)
[2019-12-18] MEDS: ASPIRIN 81 MG TAB.CHEW PO SCH (09:52)
[2019-12-18] MEDS: VITAMIN B COMPLEX W/C 1 TAB PO SCH (09:53)
[2019-12-18] MEDS: CARVEDILOL 6.25 MG TAB PO SCH (09:53)
[2019-12-18] MEDS: LORATADINE 10 MG TAB PO SCH (09:53)
--- NOTE | 2019-12-18 10:04 | NUR ---
AM MEDS ADMINISTERED, PT TOLERATED WELL. ALL BP MEDS ADMINISTERED. ADMINISTERED PRN MORPHINE AND IMITREX FOR HEADACHE 07/04. WILL REASSESS PT'S PAIN WITHIN AN HOUR.
[2019-12-18 12:00] VITALS: BP 159/81
[2019-12-18] MEDS ORDERED: hydrALAZINE 20 MG/ML VIAL IVP SCH (12:00)
[2019-12-18] MEDS ORDERED: ASPI81CT95 PO (12:15)
[2019-12-18] MEDS ORDERED: CYCL10TA14 PO (12:15)
[2019-12-18] MEDS ORDERED: IMI25 PO (12:15)
[2019-12-18] MEDS ORDERED: HYDR-4420 PO (12:15)
[2019-12-18] MEDS ORDERED: CARV6.252 PO (12:15)
[2019-12-18] MEDS ORDERED: hydrALAZINE 25 MG TAB PO SCH (13:00)
[2019-12-18 14:10] VITALS: BP 108/68
--- NOTE | 2019-12-18 14:12 | NUR ---
BP IS 108/58 AT THIS TIME Addendum: 12/18/19 at 1416 by Carol Leach RN CORRECTION: BP 108/68
--- NOTE | 2019-12-18 14:32 | NUR ---
12/18/19 RD INITIAL ASSESSMENT COMPLETED PLEASE REFER TO NUTRITION ASSESSMENT UNDER CARE ACTIVITY FOR ESTIMATED NUTRITIONAL NEEDS. 1. CONTINUE RENAL DIET TOLERATED 2. RD TO FOLLOW-UP 5-7 DAYS, LOW RISK AUGUSTINA ALLEN RD
--- NOTE | 2019-12-18 14:41 | NUR ---
PT HAS DC'D HOME. PT AND HIS WERE GIVEN DC INSTRUCTIONS AND PRESCRIPTION. THEY VERBALIZED UNDERSTANDING OF DC TEACHING. IV SITE AND WRIST BANDS REMOVED. PT IS UP TO DATE ON FLU SHOT. PT LEFT WITH ALL HIS BELONGINGS IN STABLE CONDITION
== END 2019-12-18 14:35 | disposition home or self-care (01) | DRG 199 ==
LOC: MED 17:04 → MTU 20:45 → OBSVTOIN 12-15 08:33 → MTU 12-15 15:11
PROVIDERS: ADMIT General Practice; ATTEND General Practice
PROC: 5A1D70Z Performance of Urinary Filtration, Intermittent, Less than 6 Hours Per Day (ICD-10-PCS; principal; 2019-12-15)
PROC: 5A1D70Z Performance of Urinary Filtration, Intermittent, Less than 6 Hours Per Day (ICD-10-PCS; 2019-12-17)
DX: I16.0 Hypertensive urgency (principal); E11.22 Type 2 diabetes mellitus with diabetic chronic kidney disease; E11.40 Type 2 diabetes mellitus with diabetic neuropathy, unspecified; B34.9 Viral infection, unspecified; J06.9 Acute upper respiratory infection, unspecified; I13.11 Hypertensive heart and chronic kidney disease without heart failure, with stage 5 chronic kidney disease, or end stage renal disease; N18.6 End stage renal disease; E44.1 Mild protein-calorie malnutrition; D63.8 Anemia in other chronic diseases classified elsewhere; E11.319 Type 2 diabetes mellitus with unspecified diabetic retinopathy without macular edema; E78.5 Hyperlipidemia, unspecified; G43.909 Migraine, unspecified, not intractable, without status migrainosus; H54.8 Legal blindness, as defined in USA; D50.9 Iron deficiency anemia, unspecified; J32.0 Chronic maxillary sinusitis; Z68.25 Body mass index [BMI] 25.0-25.9, adult; Z99.2 Dependence on renal dialysis; Z79.899 Other long term (current) drug therapy
CPT/HCPCS: 96374; 96375; 96376; 99285; G0378; 36415; 70450; 71045; 80048; 80053; 82140; 82150; 82550; 82607; 82728; 82746; 82948; 83036; 83540; 83615; 83690; 83735; 83880; 84100; 84134; 84436; 84443; 84484; 85025; 85045; 85610; 85730; 87081; 87804; 93005; 97116; 97161-GP; G0482; J0360; J1170; J1815; J2270; J2405; J7030; Q0092

== ENCOUNTER 2020-01-04 14:52 | Emergency (ER) | payer MEDICAID ==
[~2020-01-04] VITALS: Ht 167.6 cm; Wt 79.8 kg
[~2020-01-04 14:52] MED LIST: ASPI81CT95 PO; ATOR40TA PO; BER PO; CARV6.252 PO; CYCL10TA14 PO; FURO-570 PO; HYDR-4420 PO; IMI25 PO; NIFE60TE5 PO; PHO667 PO; VITA1TAB44 PO
--- NOTE | 2020-01-04 14:52 | NUR ---
Patient BIBA ALS accompanied by Bettie gann 183, transferred to bed 6. RN evaluating patient at bedside.
[2020-01-04 15:00] VITALS: BP 97/61
--- NOTE | 2020-01-04 15:10 | NUR ---
PT PLACED ON L LEAD ECG.
--- NOTE | 2020-01-04 15:10 | NUR ---
PT PLACED ON 3 L NC.
--- NOTE | 2020-01-04 15:10 | NUR ---
DR. GUNDERSON AT BEDSIDE.
[2020-01-04] MEDS ORDERED: SUMAtriptan 6 MG/0.5 ML VIAL SUBQ ONE (15:20)
--- NOTE | 2020-01-04 15:24 | NUR ---
BROUGHT IN BY EMS FROM DIALYSIS, PT FOUND TO BE HYPOTENSIVE -- HEMODIALYSIS DUE TODAY BUT NOT STARTED. ADMITS TO X2 EMESIS LAST NIGHT DENIES LOOSE/WATERY STOOLS.
--- NOTE | 2020-01-04 15:26 | NUR ---
XR AT BEDSIDE.
--- NOTE | 2020-01-04 15:54 | NUR ---
EMT AT BEDSIDE WITH EKG.
--- NOTE | 2020-01-04 15:58 | NUR ---
LAB AT BEDSIDE.
[2020-01-04 16:21] LABS: BASOPHILS # (AUTO) 0.1 K/uL (0.00-0.22); EOSINOPHILS % (AUTO) 0.4 % (0.0-4.0); HEMATOCRIT 28.1 % (36-52); HEMOGLOBIN 8.9 g/dL (12.0-18.0); LYMPHOCYTES # (AUTO) 1.1 K/uL (2.0-11.5); LYMPHOCYTES % (AUTO) 17.4 % (20.5-51.1); MEAN CORPUSCULAR HEMOGLOBIN 27 pg (27-31); MEAN CORPUSCULAR HGB CONC 32 g/dL (33-37); MEAN CORPUSCULAR VOLUME 84.5 fL (80-94); MONOCYTES # (AUTO) 0.8 K/uL (0.8-1.0); MONOCYTES % (AUTO) 12.1 % (1.7-9.3); NEUTROPHILS # (AUTO) 4.6 K/uL (1.8-7.7); NEUTROPHILS % (AUTO) 69.1 % (42.2-75.2); PLATELET COUNT (AUTO) 221 K/uL (140-450); RED BLOOD CELL COUNT(AUTO) 3.33 MIL/uL (4.20-6.10); RED CELL DISTRIBUTION WIDTH 18.9 % (11.6-13.7); WHITE BLOOD COUNT (AUTO) 6.6 K/uL (4.8-10.8)
[2020-01-04 16:39] LABS: ALBUMIN 2.9 g/dL (3.4-5.0); CARBON DIOXIDE 30.6 mmol/L (21-32); POTASSIUM 4.6 mmol/L (3.5-5.1); TOTAL BILIRUBIN 0.7 mg/dL (0.0-1.0)
--- NOTE | 2020-01-04 16:58 | NUR ---
CRITICAL BUN 75, CREAT 8.97,
--- NOTE | 2020-01-04 17:00 | NUR ---
CRITICAL LAB REPORTED TO
[2020-01-04] MEDS ORDERED: NACL 0.9% 250 ML IV ONE (17:10)
--- NOTE | 2020-01-04 18:35 | NUR ---
CALLED REPORT TO STARLA VELEZ PHLEBOTOMY INSTRUCTOR AT [facility].
--- NOTE | 2020-01-04 18:58 | NUR ---
REPORT GIVEN TO AGUSTIN CHA ELECTRICIAN POWERHOUSE AT [facility]. PHONE NUMBER [phone]
--- NOTE | 2020-01-04 19:03 | NUR ---
DR. GUNDERSON AT BEDSIDE, TALKING WITH PT AND WITH FAMILY.
--- NOTE | 2020-01-04 19:11 | NUR ---
TRANSFER OF CARE TO STARLA MITCHELL
--- NOTE | 2020-01-04 19:12 | NUR ---
TRANSFER OF CARE TO STARLA MITCHELL
--- NOTE | 2020-01-04 19:21 | NUR ---
REPORT GIVEN TO EMS, PT A&O X 4, EVEN UNLABORED RESPIRATIONS. VSS.
[2020-01-04 19:22] VITALS: BP 138/72
--- NOTE | 2020-01-04 19:23 | NUR ---
Patient to be transferred to [facility] . Is being transferred due to [facility]. Receiving facility has accepting physician and available space. ER physician has signed transfer form. Patient or responsible green party has agreed to transfer and signed form. Patient belongings inventoried and will be sent with patient. Copy of nursing notes, lab reports, EKG, Physicians Orders and X-rays to be sent with patient. Report called to STARLA VELEZ at receiving facility. [facility] [place] ambulance service HERE TO TRANFER PT.
== END 2020-01-04 19:20 | disposition short-term general hospital (02) ==
LOC: MED 14:52
DX: N19 Unspecified kidney failure (principal); E11.9 Type 2 diabetes mellitus without complications; I10 Essential (primary) hypertension; Z79.82 Long term (current) use of aspirin; Z79.899 Other long term (current) drug therapy
CPT/HCPCS: 36415; 71045; 80053; 84484; 85025; 93005; 96372; 99285; J3030; Q0092